=== PATIENT | male | born 1945 | race Caucasian/White ===

== ENCOUNTER 2020-04-16 16:11 | Emergency (ER) | payer MEDICARE, OTHER ==
[~2020-04-16] VITALS: Ht 165.1 cm; Wt 90.5 kg
[2020-04-16] MEDS ORDERED: TETANUS,DIPTH,PERTUSS P/F (BOOSTRIX) 0.5 ML VIAL IM ONE (16:15)
--- NOTE | 2020-04-16 16:20 | ED Fall/Injury ---
General Chief Complaint: Trauma-Non Activation Stated Complaint: FALL;HEAD INJ Source: patient Exam Limitations: no limitations History of Present Illness Date Seen by Provider: Apr 16, 2020 Time Seen by Provider: 16:17 Initial Comments To ER with reports of a fall while in the shower at [facility]. He has an abrasion to the back right parietal part of his head. No loss of consciousness. No confusion no vomiting. No neck pain. He does have an abrasion to the dorsal aspect of the right elbow. Occurred: just prior to arrival Severity: moderate Context: slipped Loss of Consciousness: no loss of consciousness Associated Symptoms (Fall): Denies Symptoms Allergies and Home Medications Allergies Coded Allergies: Penicillins (Verified Allergy, Unknown, 04/16/20) simvastatin (Verified Allergy, Unknown, 04/16/20) Patient Home Medication List Home Medication List Reviewed: Yes Review of Systems Review of Systems Constitutional: see HPI Eyes: No Symptoms Reported Ears, Nose, Mouth, Throat: no symptoms reported Respiratory: no symptoms reported Cardiovascular: no symptoms reported Genitourinary: no symptoms reported Musculoskeletal: no symptoms reported Skin: no symptoms reported Psychiatric/Neurological: No Symptoms Reported Physical Exam Vital Signs Vital Signs - First Documented Capillary Refill : Height, Weight, BMI Height: '" Weight: lbs. oz. kg; BMI Method: General Appearance: WD/WN, no apparent distress, other (Alert and oriented denies headache denies nausea denies dizziness. Very talkative and jovial.) Neck: non-tender, full range of motion Respiratory: no respiratory distress, no accessory muscle use Gastrointestinal: normal bowel sounds, soft Extremities: normal range of motion, non-tender, other (Normal flexion and extension at the right elbow without pain but there is an abrasion over the olecranon process.) Neurologic/Psychiatric: alert, normal mood/affect, oriented x 3 Skin: normal color, warm/dry Vera Coma Score Best Eye Response: (4) Open Spontaneously Best Verbal Response: (5) Oriented Best Motor Response: (6) Obeys Commands Vera Total: 15 Progress/Results/Core Measures Results/Orders My Orders Orders - SHELBIE QUEEN APRN Ct Head/Cervical Spine Wo (04/16/20 16:14) Elbow, Right, 3 Views (04/16/20 16:14) Dipht,Pertuss(Acell),Tet Adult (Boostrix (04/16/20 16:15) Medications Given in ED Current Medications Medications Dose Ordered Sig/Roverto Route Start Time Stop Time Status Last Admin Dose Admin Diphtheria/ Tetanus/Acell Pertussis 0.5 ml ONCE ONCE IM 04/16/20 16:15 04/16/20 16:17 DC 04/16/20 16:30 0.5 ML Vital Signs/I&O 04/16/20 04/16/20 04/16/20 16:12 16:12 17:26 Temp 36.2 36.2 36.7 Pulse 80 80 88 Resp 18 18 18 B/P (MAP) 138/71 (93) 138/71 (93) 132/62 Pulse Ox 97 97 97 O2 Delivery Room Air Room Air Room Air Departure Communication (Admissions) Family Conversation NAME: RANDA PEREZ [facility] REC#: [id number] PT STATUS: REG ER : 1945 PHYSICIAN: SHELBIE QUEEN APRN ADMIT DATE: 04/16/20/ER Draft Date of Exam:04/16/20 CT HEAD/CERVICAL SPINE WO PROCEDURE: CT head and CT cervical spine without contrast. TECHNIQUE: Multiple contiguous axial images were obtained through the brain and cervical spine without the use of intravenous contrast. Sagittal and coronal reformations through the cervical spine were then performed. Auto Exposure Controls were utilized during the CT exam to meet ALARA standards for radiation dose reduction. INDICATION: Fall with head and neck injury. FINDINGS: CT HEAD: Ventricles and sulci are diffusely prominent. No intracranial hemorrhage is identified. There is no abnormal mass effect or shift of midline structures. Contusion is seen in the posterior scalp region. Calvarium appears to be intact. There is mild mural thickening within left frontal and maxillary sinuses. IMPRESSION: Involutional findings in the brain without CT evidence of acute intracranial abnormality. CT CERVICAL SPINE: There is loss of cervical lordosis. Disc space narrowing, endplate spurring, and degenerative facet arthropathy are present diffusely, however no acute fracture or malalignment is identified. IMPRESSION: Cervical spondylosis without acute fracture or malalignment identified. Loss of cervical lordosis may be secondary to muscle spasm or positioning. Dictated on workstation # [id number] Dict: 04/16/20 1714 Trans: 04/16/20 1719 [facility] [id number] Interpreted by: NILSA KAUR MD Electronically signed by: NAME: RANDA PEREZ [facility] REC#: [id number] PT STATUS: REG ER : 1945 PHYSICIAN: SHELBIE QUEEN APRN ADMIT DATE: 04/16/20/ER Draft Date of Exam:04/16/20 ELBOW, RIGHT, 3 VIEWS INDICATION: Fall. Three views of the right elbow were obtained. FINDINGS: The alignment is normal. There are mild degenerative changes. There is no fracture or dislocation. IMPRESSION: Mild degenerative changes otherwise unremarkable. Dictated on workstation # [id number] Dict: 04/16/20 1656 Trans: 04/16/20 1659 [facility] [id number] Interpreted by: ANGELINA LYNN MD Electronically signed by: Impression Primary Impression: Abrasion Additional Impression: Head injury Disposition: 01 HOME, SELF-CARE Condition: Stable Departure-Patient Inst. Decision time for Depature: 16:19 Patient Instructions: Closed Head Injury Add. Discharge Instructions: . Follow-up with his doctor next week. Return to ER for any concerns. All discharge instructions reviewed with patient and/or family. Voiced understanding. SHELBIE QUEEN APRN Apr 16, 2020 16:19
--- NOTE | 2020-04-16 16:59 | Diagnostic Imaging Report ---
INDICATION: Fall. Three views of the right elbow were obtained. FINDINGS: The alignment is normal. There are mild degenerative changes. There is no fracture or dislocation. IMPRESSION: Mild degenerative changes otherwise unremarkable. Dictated by: Dictated on workstation # [id number]
--- NOTE | 2020-04-16 17:20 | Diagnostic Imaging Report ---
PROCEDURE: CT head and CT cervical spine without contrast. TECHNIQUE: Multiple contiguous axial images were obtained through the brain and cervical spine without the use of intravenous contrast. Sagittal and coronal reformations through the cervical spine were then performed. Auto Exposure Controls were utilized during the CT exam to meet ALARA standards for radiation dose reduction. INDICATION: Fall with head and neck injury. FINDINGS: CT HEAD: Ventricles and sulci are diffusely prominent. No intracranial hemorrhage is identified. There is no abnormal mass effect or shift of midline structures. Contusion is seen in the posterior scalp region. Calvarium appears to be intact. There is mild mural thickening within left frontal and maxillary sinuses. IMPRESSION: Involutional findings in the brain without CT evidence of acute intracranial abnormality. CT CERVICAL SPINE: There is loss of cervical lordosis. Disc space narrowing, endplate spurring, and degenerative facet arthropathy are present diffusely, however no acute fracture or malalignment is identified. IMPRESSION: Cervical spondylosis without acute fracture or malalignment identified. Loss of cervical lordosis may be secondary to muscle spasm or positioning. Dictated by: Dictated on workstation # [id number]
[2020-04-16 17:26] VITALS: BP 132/62
--- NOTE | 2020-04-16 17:30 | NUR ---
[facility] WAS CALLED AND INFORMED PATIENT IS BEING DISCHARGED.
--- NOTE | 2020-04-16 17:47 | NUR ---
[facility] ARE HERE AND PT WAS ESCORTED TO THEIR VEHICLE. DISCHARGE INSTRUCTIONS WERE GIVEN TO THEM. CARE WAS TRANSFERRED.
== END 2020-04-16 17:48 | disposition home or self-care (01) ==
LOC: ER 16:12
DX: S50.311A Abrasion of right elbow, initial encounter (principal); S00.91XA Abrasion of unspecified part of head, initial encounter; S09.90XA Unspecified injury of head, initial encounter; R40.2410 Glasgow coma scale score 13-15, unspecified time; Z88.0 Allergy status to penicillin; Z88.8 Allergy status to other drugs, medicaments and biological substances; Z23 Encounter for immunization; W01.0XXA Fall on same level from slipping, tripping and stumbling without subsequent striking against object, initial encounter
CPT/HCPCS: 70450; 72125; 73080; 90715

== ENCOUNTER → 2020-06-26 | Outpatient (CLI) | payer MEDICARE, OTHER ==
[2020-06-26 23:46] LABS: BILIRUBIN,URINE NEGATIVE (NEGATIVE); CLARITY,URINE CLEAR; COLOR,URINE YELLOW; GLUCOSE, URINE (UA) NEGATIVE (NEGATIVE); KETONES,URINE NEGATIVE (NEGATIVE); LEUKOCYTE ESTERASE ,URINE NEGATIVE (NEGATIVE); NITRITE,URINE NEGATIVE (NEGATIVE); PROTEIN,URINE NEGATIVE (NEGATIVE)
[2020-06-27 00:12] LABS: BACTERIA,URINE NEGATIVE /HPF
== END ==
LOC: LABNPT 23:42
PROVIDERS: ATTEND Family Medicine
DX: R82.998 Other abnormal findings in urine (principal)
CPT/HCPCS: 81000

== ENCOUNTER 2020-12-07 00:06 | Emergency (ER) | payer MEDICARE, OTHER, MEDICAID ==
[~2020-12-07] VITALS: Ht 165.1 cm; Wt 97.0 kg
--- NOTE | 2020-12-07 00:55 | ED Fall/Injury ---
General Chief Complaint: Lower Extremity Stated Complaint: FALL RT HIP PAIN Nursing Triage Note: Pt arrival to ER via [facility] with complaint of R. Hip/Leg pain after witnessed fall. Pt complaining of pain, but has full range of motion and was able to ambulate on it post fall. Nursing staff states that patient is in normal mentation. Pt does have abrasion to top of forehead. Staff denies loss of consciousness. Source: EMS, correction records (ALL PMH IS FROM CORRECTION RECORD) Exam Limitations: other (PT WITH DEMENTIA AND UNABLE TO GIVE RELIABLE INFORMATION) History of Present Illness Date Seen by Provider: Dec 07, 2020 Time Seen by Provider: 00:10 Initial Comments PT ARRIVES VIA EMS FROM [facility] PT HAD A WITNESSED FALL AT CORRECTION PT HAD COMPLAINED OF RIGHT HIP PAIN AT THE TIME OF THE FALL, BUT PT HAS BEEN ABLE TO AMBULATE AFTER HE FELL. PT WITH CHRONIC GAIT DISTURBANCE, GENERALIZED WEAKNESS PT HAS LARGE ABRASION TO FOREHEAD WELL NO REPORTED LOSS OF CONSCIOUSNESS ON ASKING PT WHERE HE HURTS, HE POINTS TO LEFT HIP. PT HAS HAD PRIOR LEFT HIP REPLACEMENT PT IS NOT ON ASPIRIN OR BLOOD THINNERS PT RECEIVED ULTRAM AT 1903 FOR C/O RIGHT KNEE PAIN NO OTHER INFORMATION IS OBTAINABLE FROM PT CORRECTION HAS REPORTED THAT PT IS AT NORMAL BASELINE MENTATION PCP: DR. MENDOZA Allergies and Home Medications Allergies Coded Allergies: Penicillins (Verified Allergy, Unknown, 04/16/20) simvastatin (Verified Allergy, Unknown, 04/16/20) Review of Systems Review of Systems Constitutional: no symptoms reported Musculoskeletal: see HPI Skin: see HPI Past Tblblff-Kfruay-Tpsjfb Hx Past Medical History Surgery/Hospitalization HX: LEFT HIP REPLACEMENT Surgeries: Yes Joint Replacement, Orthopedic Respiratory: Yes (HX OF COVID-19 INFECTION) Cardiac: Yes High Cholesterol, Hypertension Neurological: Yes Dementia Genitourinary: No Gastrointestinal: No Musculoskeletal: Yes (LEFT HIP REPLACEMENT; GAIT DISTURBANCE;GEN WEAKNESS;FALLS) Arthritis Endocrine: Yes Diabetes, Non-Insulin dep HEENT: Yes (TONGUE CANCER) Dysphagia Cancer: Yes Oral CANCER OF TONGUE Psychosocial: Yes (HALLUCINATIONS) Schizophrenia, Depression Integumentary: No Blood Disorders: No Physical Exam Vital Signs Vital Signs - First Documented 12/07/20 00:36 Temp 36.7 Pulse 80 Resp 20 B/P (MAP) 128/93 (105) Pulse Ox 93 O2 Delivery Room Air Capillary Refill : Less Than 3 Seconds Height, Weight, BMI Height: '" Weight: lbs. oz. kg; 35.00 BMI Method: General Appearance: WD/WN, no apparent distress HEENT: PERRL/EOMI, other (LARGE ABRASION TO FOREHEAD. NO ACTIVE BLEEDING, MILD SWELLING TO AREA. ) Neck: non-tender, full range of motion Cardiovascular: regular rate, rhythm, no murmur Respiratory: chest non-tender, normal breath sounds, no respiratory distress, no accessory muscle use Gastrointestinal: non tender, soft Back: no CVA tenderness, no vertebral tenderness Extremities: pedal edema (1+ BILATERALLY), other (TENDERNESS TO LEFT HIP; NO DEFORMITY, NO SHORTENING / ROTATION, DISTAL PULSES INTACT. NO EXTERNAL EVIDENCE OF TRAUMA TO ARMS OR LEGS. ) Neurologic/Psychiatric: no motor/sensory deficits, alert, normal mood/affect, other (CONFUSED TO PLACE/TIME/SITUATION) Skin: normal color, warm/dry, other (SUPERFICIAL ABRASIONS TO FOREHEAD) Bryson Coma Score Best Eye Response: (4) Open Spontaneously Best Verbal Response: (4) Confused Conversation Best Motor Response: (6) Obeys Commands Vera Total: 14 Progress/Results/Core Measures Results/Orders My Orders Orders - NELSON CUMMINGS DO Ct Head/Face/Cervical Wo (12/07/20 00:11) Pelvis/Miky Hips 5> Views (12/07/20 00:17) Dipht,Pertuss(Acell),Tet Adult (Boostrix (12/07/20 01:45) Medications Given in ED Current Medications Medications Dose Ordered Sig/Roverto Route Start Time Stop Time Status Last Admin Dose Admin Diphtheria/ Tetanus/Acell Pertussis 0.5 ml ONCE ONCE IM 12/07/20 01:45 12/07/20 01:46 DC 12/07/20 01:49 0.5 ML Vital Signs/I&O 12/07/20 00:36 Temp 36.7 Pulse 80 Resp 20 B/P (MAP) 128/93 (105) Pulse Ox 93 O2 Delivery Room Air Blood Pressure Mean: 105 Diagnostic Imaging Comments XRAYS PELVIS AND BILATERAL HIPS--NO ACUTE PROCESS, HARDWARE IN PLACE LEFT HIP. PENDING RADIOLOGIST REVIEW CT HEAD/MAXILLFACIALS/CERVICAL SPINE Reviewed: Reviewed by Me Departure Impression Primary Impression: S/P WITNESSED FALL Additional Impressions: Closed head injury without loss of consciousness Abrasion of forehead Olsyhbbcom-oymyxcgwl-xxpiyfa (DPT) vaccination administered at current visit Hip pain Departure-Patient Inst. Decision time for Depature: 02:13 Referrals: DESTINY MENDOZA DO (PCP/Family) Primary Care Physician Patient Instructions: Abrasions ED, Closed Head Injury (DC), Diphtheria and Tetanus Toxoids, and Acellular Pertussis Vaccine, Hip Pain ED, Preventing Falls in the Older Adult Add. Discharge Instructions: CONTINUE ALL HOME MEDICATIONS FOLLOW UP WITH DR. MENDOZA FOR FURTHER CARE All discharge instructions reviewed with patient and/or family. Voiced understanding. NELSON CUMMINGS DO Dec 07, 2020 00:55
[2020-12-07] MEDS ORDERED: TETANUS,DIPTH,PERTUSS P/F (BOOSTRIX) 0.5 ML VIAL IM ONE (01:45)
[2020-12-07 03:12] VITALS: BP 158/87
--- NOTE | 2020-12-07 06:16 | Diagnostic Imaging Report ---
PROCEDURE: CT head, face, and cervical spine without contrast. TECHNIQUE: Multiple contiguous axial images were obtained through the head, neck, and facial bones without the use of intravenous contrast. Sagittal and coronal reformations through the cervical spine and facial bones were also performed. Auto Exposure Controls were utilized during the CT exam to meet ALARA standards for radiation dose reduction. INDICATION: Trauma with injuries to head, neck and face. COMPARISON: 04/16/2020 CT HEAD: Ventricles and sulci are prominent, however no hemorrhage is identified. There is no abnormal mass effect or shift of midline structures. Calvarium is intact. There is mural thickening present within ethmoid air cells bilaterally and maxillary sinuses, greater on the left. Mild degenerative findings are seen in the left temporomandibular joint. IMPRESSION: No acute intracranial abnormality is identified. Note is made of apparent ethmoiditis with probable chronic maxillary sinus disease, greater on the left. Maxillofacial CT: There is no evidence of fracture. No organized fluid collection is seen. Globes are intact. No intraorbital hematoma seen. Note is made of surgical clips in the deep left neck. There is fatty infiltration throughout the parotid salivary glands. IMPRESSION: Postoperative findings in the left neck without acute maxillofacial abnormality. CT cervical spine: There is loss of normal cervical lordosis with evidence of old fractures along the posterior cervical spine at the level of C5 and C6. Otherwise, there is diffuse disc space narrowing. No acute fracture or malalignment is identified. Right lobe of thyroid gland is small or absent. IMPRESSION: Cervical spondylosis with loss of cervical lordosis which may be secondary to muscle spasm or positioning. Otherwise, no acute cervical spinal abnormality is identified. Dictated by: Dictated on workstation # [id number]
--- NOTE | 2020-12-07 06:29 | Diagnostic Imaging Report ---
INDICATION: Fall with pelvic and hip pain AP view of the pelvis is obtained with coned AP and frog-leg views of the hips. There has been total left hip arthroplasty. Mild lower lumbar spondylosis is present. There is no evidence of an acute fracture. No orthopedic hardware complication is seen. There are numerous calcified phleboliths seen in the pelvis. IMPRESSION: Lower lumbar spondylosis and total left hip arthroplasty. No acute abnormality is identified. Dictated by: Dictated on workstation # [id number]
== END 2020-12-07 03:12 | disposition home or self-care (01) ==
LOC: EDUNIT# 00:06 → ER 00:07
DX: S00.81XA Abrasion of other part of head, initial encounter (principal); S09.90XA Unspecified injury of head, initial encounter; M25.552 Pain in left hip; M25.551 Pain in right hip; I10 Essential (primary) hypertension; E11.9 Type 2 diabetes mellitus without complications; Z23 Encounter for immunization; W19.XXXA Unspecified fall, initial encounter
CPT/HCPCS: 70450; 70486; 72125; 73523; 90715